=== PATIENT | female | born 1970 | race Caucasian/White ===

== ENCOUNTER 2024-02-27 22:16 | Emergency (ER) | payer SELFPAY ==
[~2024-02-27] VITALS: Ht 165.1 cm; Wt 81.8 kg
[2024-02-27 22:21] VITALS: BP 120/73; TEMP 96.5
[2024-02-27] MEDS ORDERED: NS 1,000 ML IV ONE (22:45)
[2024-02-27 22:52] LABS: BASO % 0.2 % (0.0-2.0); EOS % 0.2 % (0.0-4.0); GRAN # 10.8 K/mm3 (1.4-6.5); GRAN % 89.5 % (42.2-75.2); HEMATOCRIT 42.6 % (37.0-47.0); HEMOGLOBIN 14.2 g/dl (12.5-16.0); LYMPH # 0.8 K/mm3 (1.2-3.4); LYMPH % 6.9 % (20.0-51.0); MEAN CELL VOLUME 91 fl (80.0-100.0); MEAN CORPUSCULAR HEMOGLOBIN 30 pg (27-31); MEAN CORPUSCULAR HGB CONC 33 g/dl (33.0-37.0); MEAN PLATELET VOLUME 10.7 fl (7.4-10.4); MONO # 0.4 K/mm3 (0.1-0.6); MONO % 2.9 % (1.7-9.3); PLATELET COUNT 235 K/mm3 (130-400); RED BLOOD COUNT 4.68 M/mm3 (4.10-5.30); REDCELL DISTRIBUTION WIDTH-CV 12.6 % (11.5-14.5)
[2024-02-27] MEDS ORDERED: Ondansetron 4 MG/2 ML VIAL IV ONE (23:00)
[2024-02-27 23:11] LABS: ALANINE AMINOTRANSFERASE 12 U/L (0-55); ALBUMIN 3.9 g/dL (3.5-5.0); ALCOHOL(ethanol),MEDICAL < 10 mg/dL (0-10); ALKALINE PHOSPHATASE 55 U/L (40-150); ANION GAP 11 mmol/L (7-16); AST,SGOT 16 U/L (5-34); BILIRUBIN,TOTAL 0.4 mg/dL (0.2-1.2); BLOOD UREA NITROGEN 15 mg/dL (10-20); CALCIUM 9.3 mg/dL (8.4-10.2); CHLORIDE 108 mEq/L (98-107); CREATININE, serum 0.85 mg/dL (0.57-1.11); GLUCOSE 170 mg/dL (70-99); POTASSIUM 4.5 mEq/L (3.5-4.5); SALICYLATE < 5.0 mg/dL (15.0-30.0); SODIUM 141 mEq/L (136-145)
[2024-02-28 01:01] LABS: TRICYCLIC ANTIDEPRESS URINE NEGATIVE (NEGATIVE)
[2024-02-28 02:38] VITALS: PULSE 102
== END 2024-02-28 02:38 | disposition home or self-care (01) ==
LOC: COL.ER 22:16 → EDBD 22:19 → COL.ER 02-28 02:38
PROVIDERS: Nurse Practitioner
DX: F12.20 Cannabis dependence, uncomplicated (principal); R11.2 Nausea with vomiting, unspecified
CPT/HCPCS: J2405; J7030